=== PATIENT | female | born 1970 | race Caucasian/White ===

== ENCOUNTER 2019-06-12 14:07 | Emergency (ER) | payer BC, OTHER ==
[~2019-06-12] VITALS: Ht 170.2 cm; Wt 111.1 kg
[2019-06-12 15:41] LABS: ABSOLUTE NEUTROPHILS 14.3 thou/uL (1.4-8.2); BASOPHILS 0.1 % (0.0-2.0); EOSINOPHILS 0.1 % (0.0-3.0); HEMATOCRIT 36.4 % (37.0-47.0); HEMOGLOBIN 12.1 gm/dL (12.0-15.0); MCH 30.7 pg (26.0-34.0); MCHC 33.3 g/dL (28.0-37.0); MCV 92.1 fL (80.0-100.0); PLATELET COUNT 297 thou/uL (150-400); POLYS 93.8 % (36.0-66.0); RBC 3.95 mil/uL (4.20-5.00); RDW 13.3 % (10.5-14.5); WBC 15.2 thou/uL (4.0-11.0)
[2019-06-12 16:02] LABS: ANION GAP 6 mmol/L (7-16); BUN 16 mg/dL (7-18); CALCIUM 8.6 mg/dL (8.5-10.1); CHLORIDE 102 mmol/L (98-107); CO2 27 mmol/L (21-32); CREATININE 0.7 mg/dL (0.6-1.0); GLUCOSE 118 mg/dL (74-106); POTASSIUM 3.8 mmol/L (3.5-5.1); SODIUM 135 mmol/L (136-145)
[2019-06-12 16:12] LABS: ALBUMIN 3.5 g/dL (3.4-5.0); SGOT 23 U/L (15-37); SGPT 35 U/L (30-65); TOTAL BILIRUBIN 0.5 mg/dL (<0.1-1.0); TOTAL PROTEIN 6.5 g/dL (6.4-8.2); TROPONIN-I <0.06 ng/mL (<0.06)
[2019-06-12 17:43] VITALS: BP 121/82
--- NOTE | 2019-06-13 09:37 | EKG ---
[facility] [place] [place] [address] [place] [address] ELECTROCARDIOGRAM REPORT Name: CHRISTINE MITCHELL Room #: DEP [facility]#: [id number] Admission: 06/12/19 Attend Phys: Discharge: 06/12/19 Date of : 68 Report #: [id number] THIS REPORT FOR: cc: GUALBERTO - Alexandra family physician/PCP GUALBERTO - Alexandra family physician/PCP Reid Miller MD [facility] THIS REPORT FOR: //name// 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1970 Requested By: Saba Philippe Order Number: [id number] MD: Reid Miller Measurements Intervals [place] Rate: 138 P: MO: QRS: -46 QRSD: 147 T: 142 QT: 383 QTc: 581 Interpretive Statements Atrial fibrillation Left bundle branch block Baseline wander in lead(s) I,III,aVL No previous ECG available for comparison Electronically Signed On 06-13-2019 9:36:39 INSTRUCTIONAL TECHNOLOGY TEACHER by Reid Miller [email or web address] <ELECTRONICALLY SIGNED> By: Reid Miller MD, FACC 06/13/19 0936 1535 1535 Reid Miller MD, [facility] /EPI
--- NOTE | 2019-06-13 09:37 | EKG ---
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
== END 2019-06-12 17:56 | disposition home or self-care (01) ==
LOC: ER 14:07
PROVIDERS: Physician Assistant
DX: I48.20 Chronic atrial fibrillation, unspecified (principal); Z86.79 Personal history of other diseases of the circulatory system; Z96.641 Presence of right artificial hip joint; Z88.2 Allergy status to sulfonamides

== ENCOUNTER → 2019-07-30 | Outpatient (CLI) | payer BC | LOC: SJCVCIMAG 08:43 | DX: I08.1 Rheumatic disorders of both mitral and tricuspid valves (principal); I44.7 Left bundle-branch block, unspecified; I45.4 Nonspecific intraventricular block; I48.0 Paroxysmal atrial fibrillation; R00.1 Bradycardia, unspecified; Z88.2 Allergy status to sulfonamides ==

== ENCOUNTER → 2020-03-22 | Outpatient (CLI) | payer BC ==
[~2020-03-22] MED LIST: LIPITOR10 MG PO; MELOXICAM7.5 MG PO; PRADAXA150 MG PO; SYNTHROID75 MCG PO; TAMBOCOR 100 M100 M1 PO; TOPROL XL50 MG PO
[2020-03-22 08:45] LABS: HEMATOCRIT 39.6 % (37.0-47.0); HEMOGLOBIN 13.1 gm/dL (12.0-15.0); MCH 31.1 pg (26.0-34.0); MCHC 33.2 g/dL (28.0-37.0); MCV 93.7 fL (80.0-100.0); RBC 4.23 mil/uL (4.20-5.00); RDW 13.1 % (10.5-14.5); WBC 6.5 thou/uL (4.0-11.0)
[2020-03-22 09:17] LABS: ALBUMIN 3.9 g/dL (3.4-5.0); CALCIUM 9.1 mg/dL (8.5-10.1); CREATININE 0.9 mg/dL (0.6-1.0); POTASSIUM 4.3 mmol/L (3.5-5.1); TOTAL BILIRUBIN 0.5 mg/dL (0.2-1.0); TOTAL PROTEIN 6.7 g/dL (6.4-8.2)
== END ==
LOC: CAT 07:50
PROVIDERS: ATTEND Internal Medicine Cardiovascular Disease
DX: I48.91 Unspecified atrial fibrillation (principal); M47.814 Spondylosis without myelopathy or radiculopathy, thoracic region

== ENCOUNTER → 2020-03-22 | Outpatient (CLI) | payer BC | LOC: LAB 10:24 | PROVIDERS: ATTEND Internal Medicine Cardiovascular Disease | DX: Z20.828 Contact with and (suspected) exposure to other viral communicable diseases (principal) ==

== ENCOUNTER → 2020-03-25 | Outpatient (CLI) | payer BC, OTHER ==
[~2020-03-25] VITALS: Ht 170.2 cm; Wt 115.0 kg
[~2020-03-25] MED LIST changes: +ASA81BEC PO
[2020-03-25 07:18] VITALS: BP 118/62
--- NOTE | 2020-03-25 08:46 | TEE ---
[facility] [place] [address] [place] [address] TRANSESOPHAGEAL ECHOCARDIOGRAM Name: CHRISTINE MITCHELL Room #: REG [facility]#: [id number] Admission: 03/25/20 Attend Phys: Reid Miller MD, Discharge: Date of : 68 Report #: [id number] THIS REPORT FOR: cc: Sendy Bowers MD, Jennifer MD Lundgren,Reid Quintana MD [facility] ~ APPROVED REPORT Study performed: 03/25/2020 07:40:29 EXAM: Transesophageal Echocardiogram with Doppler and color flow mapping Patient Location: Out-Patient Room #: 9 Status: routine BSA: 2.24 HR: 45 bpm BP: 131/74 mmHg Rhythm: Bradycardia Other Information Study Quality: Excellent Indications Atrial Fibrillation Echo Enhancing Agent Indication: Rule out Shunt Agent(s) / Amount(s) Used: Agitated Saline 7 cc Procedure After obtaining informed consent, patient underwent transesophageal echo in the [facility]. Type of Sedation : Conscious Sedation Sedation was administered by Laurence Loyd RN. Sedation was achieved intravenously with: Versed (4 mg) Fentanyl (100 mcg) Transesophageal probe was inserted and advanced into esophagus without difficulty by Reid Miller MD. Echo enhancement indication: R/O Septal defect. Echo enhancement agent administered: Agitated Saline The PURNIMA was performed without complications. Throughout the procedure, the blood pressure, pulse oximetry, cardiac rhythm, and rate were monitored. [facility] [address] [place] [address] TRANSESOPHAGEAL ECHOCARDIOGRAM Name: MITCHELLCHRISTINE Adarsh Room #: REG [facility]#: [id number] Admission: 03/25/20 Attend Phys: Reid Miller, Discharge: Date of : 68 Report #: [id number] The patient tolerated the procedure without adverse effects. Recovery from conscious sedation was uneventful and vital signs were stable. Left Ventricle The left ventricle is normal size. There is normal LV segmental wall motion. There is normal left ventricular wall thickness. The left ventricular systolic function is normal. The left ventricular ejection fraction is within the normal range. LVEF is 55-60%. Right Ventricle The right ventricle is normal size. The right ventricular systolic function is normal. Atria Left atrium is dilated. No thrombus is visualized in the left atrium or appendage. Atrial septal aneurysm. No shunting by contrast bubble injection. Right atrium is at the upper limits of normal. Aortic Valve The aortic valve is normal in structure. No aortic regurgitation is present. There is no aortic valvular stenosis. Mitral Valve The mitral valve is normal in structure. Mild mitral regurgitation. No evidence of mitral valve stenosis. Tricuspid Valve The tricuspid valve is normal in structure. There is no tricuspid valve regurgitation noted. Pulmonic Valve The pulmonary valve is normal in structure. There is no pulmonic valvular regurgitation. Great Vessels The aortic root is normal in size. The ascending aorta is normal in size. IVC is normal in size and collapses >50% with inspiration. Pericardium There is no pericardial effusion. <Conclusion> The left ventricular systolic function is normal. LVEF is 55-60%. [facility] [address] [place] [address] TRANSESOPHAGEAL ECHOCARDIOGRAM Name: CHRISTINE MITHCELL Room #: REG [facility]#: [id number] Admission: 03/25/20 Attend Phys: Reid Miller, Discharge: Date of : 68 Report #: [id number] Left atrium is dilated. No thrombus is visualized in the left atrium or appendage. Atrial septal aneurysm. No shunting by contrast bubble injection. The aortic valve is normal in structure. No aortic regurgitation or stenosis The mitral valve is normal in structure. Mild mitral regurgitation. There is no pericardial effusion. <ELECTRONICALLY SIGNED> By: Reid Miller MD, FACC 03/25/2045 4 4 Reid Miller MD, FACC /INF
--- NOTE | 2020-03-25 08:48 | NUR ---
PT RESTING IN BED. RESPONDS TO QUESTIONS APPROPRIATELY. REQUESTING WATER. WATER GIVEN AND SWALLOWS WITHOUT DIFFICULTIES.
== END | disposition home or self-care (01) ==
LOC: CATH 06:28
PROVIDERS: ATTEND Internal Medicine
DX: I48.91 Unspecified atrial fibrillation (principal); I34.9 Nonrheumatic mitral valve disorder, unspecified; I10 Essential (primary) hypertension; E78.5 Hyperlipidemia, unspecified; E66.09 Other obesity due to excess calories; Z98.890 Other specified postprocedural states; Z79.899 Other long term (current) drug therapy; Z79.01 Long term (current) use of anticoagulants; Z79.82 Long term (current) use of aspirin; Z96.641 Presence of right artificial hip joint; Z88.2 Allergy status to sulfonamides

== ENCOUNTER → 2020-03-26 | Outpatient (CLI) | payer BC, OTHER ==
[~2020-03-26] VITALS: Ht 170.2 cm; Wt 113.4 kg
--- NOTE | ~2020-03-26 | P ---
[facility] [place] [address] [place] [address] PROCEDURE REPORT Name: CHRISTINE MITCHELL Room #: REG [facility]#: [id number] Admission: 03/26/20 Attend Phys: Roland Jose MD Discharge: Date of : 68 Report #: [id number] THIS REPORT FOR: cc: Sendy Bowers MD, Jennifer MD Couchonnal,Roland Park MD ~ DATE OF SERVICE: 03/26/2020 PREOPERATIVE DIAGNOSIS: Atrial fibrillation. POSTOPERATIVE DIAGNOSIS: Atrial fibrillation. HISTORY: The patient is a 49-year-old with history of atrial fibrillation, here for ablation. PROCEDURES PERFORMED: 1. AFib ablation, CPT code 95715. 2. 3D mapping, CPT code 28813. 3. Intracardiac echo. CPT code 24677. ANESTHESIA: The patient underwent general anesthesia with no anesthesia related complications. The patient underwent informed consent. We discussed the details of the procedure including the risks, which include but not limited to bleeding, vascular damage, stroke, ND as well as cardiac perforation. She understood these risks and is willing to proceed. The patient was brought to the EP laboratory in a fasting nonsedated state and prepped and draped in a sterile fashion. I obtained access to the right femoral vein x 3, placing an 8, 9 and 7-Montene[place]in short sheath using the modified Seldinger technique under fluoroscopy. A decapolar catheter was placed in the coronary sinus. ICE catheter was placed in the right atrium. Using intracardiac ultrasound, I was able to visualize that the patient had an interatrial septal aneurysm, two left and two right pulmonary veins and a large left atrial appendage. The patient was systemically heparinized and had to make two attempts to obtain transseptal access given she had this aneurysmal interatrial septum, but was then able to advance the SL1 sheath in the left superior pulmonary vein over a wire and then exchanged for the cryo sheath. At baseline, the patient was in sinus rhythm. Next, using a Lasso catheter, I created a detailed 3D geometry of the left atrium, which was merged with the cardiac CT scan. I then placed the cryoballoon to the left atrium. We started isolating the pulmonary veins. The left superior pulmonary vein underwent two 4-minute freezes and was isolated. Pacing around the vein demonstrated there was entrance and exit block. The left inferior pulmonary vein underwent a single [facility] [address] [place] [address] PROCEDURE REPORT Name: CHRISTINE MITCHELL Room #: REG [facility]#: [id number] Admission: 03/26/20 Attend Phys: Roland Jose MD Discharge: Date of : 68 Report #: [id number] 4-minute freeze as this vein isolated in 33 seconds, the right superior pulmonary vein underwent a 180-second freeze, which did not result in isolation. A second freeze, I clocked more on the balloon resulted in isolation within 35 seconds, the second freeze was 3 minutes' duration. Right inferior pulmonary vein underwent a single 4-minute freeze as this vein isolated within 51 seconds. Next, the veins were rechecked and there was evidence of isolation of all veins. As such, the procedure was concluded. Using intracardiac ultrasound, I verified there is no pericardial effusion and then the patient received systemic protamine. Catheters and sheaths were pulled. A [id number] suture with a 3-way stopcock closure technique was utilized. The patient awoke neurologically and hemodynamically intact. No complications and no significant bleeding. CONCLUSION: Successful AFib ablation with isolation of the pulmonary veins. By: [id number] Roland Jose MD /nt
[2020-03-26 07:45] VITALS: BP 131/68
[2020-03-26 07:46] LABS: HEMATOCRIT 38.1 % (37.0-47.0); HEMOGLOBIN 12.7 gm/dL (12.0-15.0); MCH 31.2 pg (26.0-34.0); MCHC 33.3 g/dL (28.0-37.0); MCV 93.6 fL (80.0-100.0); PLATELET COUNT 279 thou/uL (150-400); RBC 4.06 mil/uL (4.20-5.00); RDW 13.3 % (10.5-14.5); WBC 5.3 thou/uL (4.0-11.0)
[2020-03-26 07:52] LABS: CALCIUM 9.1 mg/dL (8.5-10.1); CREATININE 0.9 mg/dL (0.6-1.0); POTASSIUM 4.1 mmol/L (3.5-5.1)
[2020-03-26 07:57] LABS: APTT 29.7 Seconds (24.5-32.8); PROTIME 10.7 Seconds (9.3-11.4)
[2020-03-26 07:58] LABS: ALBUMIN 3.7 g/dL (3.4-5.0); TOTAL BILIRUBIN 0.6 mg/dL (0.2-1.0); TOTAL PROTEIN 6.6 g/dL (6.4-8.2)
[2020-03-26 10:13] LABS: ABSOLUTE NEUTROPHILS 3.3 thou/uL (1.4-8.2)
[2020-03-26 10:14] LABS: ANISOCYTOSIS SLIGHT
== END | disposition home or self-care (01) ==
LOC: CATH 08:23
PROVIDERS: ATTEND Internal Medicine Cardiovascular Disease
DX: I48.91 Unspecified atrial fibrillation (principal); I10 Essential (primary) hypertension; E78.5 Hyperlipidemia, unspecified; E66.09 Other obesity due to excess calories; Z98.890 Other specified postprocedural states; Z79.899 Other long term (current) drug therapy; Z82.49 Family history of ischemic heart disease and other diseases of the circulatory system; Z79.82 Long term (current) use of aspirin; Z79.01 Long term (current) use of anticoagulants; Z88.2 Allergy status to sulfonamides
CPT/HCPCS: 62110; 62900; 65020; 65040; 70005